=== PATIENT | male | born 1980 | race Caucasian/White ===

== ENCOUNTER 2018-05-25 11:10 | Emergency (ER) | payer OTHER ==
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
--- NOTE | 2018-05-25 11:53 | CR ---
EXAMINATION: Right hand, fifth digit HISTORY: Crush injury COMPARISON: None TECHNIQUE: 3 views FINDINGS/IMPRESSION: There is no acute osseous abnormality, dislocation, or fracture.. Screw and plat e hardware fixate the fourth metacarpal. Well corticated ossific density adjacent to the fourth PIP j oint.
== END 2018-05-25 12:42 | disposition home or self-care (01) ==
LOC: MW.ED 11:10
DX: S67.196A Crushing injury of right little finger, initial encounter (principal); Z79.899 Other long term (current) drug therapy; W23.1XXA Caught, crushed, jammed, or pinched between stationary objects, initial encounter
CPT/HCPCS: 73140-26-F9; 73140-F9; 99283

== ENCOUNTER 2018-07-21 12:11 | Emergency (ER) | payer BC ==
[2018-07-21] MEDS ORDERED: Octyl 2-Cyanoacrylate 1 Tube TOP ONE (12:32)
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
== END 2018-07-21 12:50 | disposition home or self-care (01) ==
LOC: MW.ED 12:11
DX: S61.412A Laceration without foreign body of left hand, initial encounter (principal); Z79.899 Other long term (current) drug therapy; W31.89XA Contact with other specified machinery, initial encounter; Y99.0 Civilian activity done for income or pay
CPT/HCPCS: 12001; 99282; A9270

== ENCOUNTER 2018-12-23 12:44 | Emergency (ER) | payer BC ==
[2018-12-23] MEDS ORDERED: LORazepam 1 MG Tab PO ONE (12:52)
[2018-12-23] MEDS ORDERED: Ketorolac 60 MG/2 ML SDV IM ONE (13:15)
--- NOTE | 2018-12-23 13:52 | CR ---
EXAMINATION: Portable chest radiograph. HISTORY: Shortness of breath. FINDINGS: The trachea is midline. The cardiomediastinal silhouette is within normal limits. No pulmonary infiltrates, effusions or pneumothorax. Osseous structures appear unremarkable. IMPRESSION: No acute cardiopulmonary process.
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
== END 2018-12-23 14:19 | disposition home or self-care (01) ==
LOC: MW.ED 12:44
DX: F41.9 Anxiety disorder, unspecified (principal)
CPT/HCPCS: 71045; 96372; 99285; A9270; J1885; 93005; 99283